=== PATIENT | female | born 1930 | race Caucasian/White ===

== ENCOUNTER → 2016-09-09 | Outpatient (CLI) | payer MEDICARE, OTHER ==
--- NOTE | 2016-09-09 14:14 | CR ---
EXAMINATION: Right hip HISTORY: Pain COMPARISON: 07/04/2016 TECHNIQUE: 2 views FINDINGS: 3 pins are again noted fixating a stable subcapital femoral neck fracture. Position and al ignment are grossly unchanged. Osseous structures otherwise appear mildly osteopenic. Mild osteophyt e formation is noted. IMPRESSION: Stable hardware fixation of a subcapital femoral neck fracture.
== END ==
LOC: MW.CHORTHO 07:57
PROVIDERS: ATTEND Orthopaedic Surgery
DX: M25.551 Pain in right hip (principal); S72.001D Fracture of unspecified part of neck of right femur, subsequent encounter for closed fracture with routine healing; Z98.890 Other specified postprocedural states; Z96.7 Presence of other bone and tendon implants; Z87.81 Personal history of (healed) traumatic fracture
CPT/HCPCS: 73502-26-RT; 73502-RT; G0463

== ENCOUNTER 2016-10-21 18:35 | Emergency (ER) | payer MEDICARE, OTHER ==
[2016-10-21] MEDS ORDERED: Sodium Chloride 0.9% 2.5 ML Syringe FLUSH PRN (18:41)
[2016-10-21] MEDS ORDERED: Sodium Chloride 0.9% 10 ML Syringe FLUSH PRN (18:41)
[2016-10-21] MEDS ORDERED: Phytonadione 10 MG in Sodium Chloride 0.9% 50 ML IV ONE (18:55)
[2016-10-21 19:11] LABS: CHLORIDE,CL 108 mmol/L (98-110); SODIUM,NA 140 mmol/L (136-146)
--- NOTE | 2016-10-21 19:23 | EDM.PDOC ---
ED HPI SEIZURE COMPLAINT - General Chief Complaint: Neuro Symptoms/Deficits Stated Complaint: STROKE Time Seen by Provider: 10/21/16 18:35 Source of Information: Reports: EMS, alf records, Other (C attendant) History Limitations: Reports: Altered mental status - History of Present Illness INITIAL COMMENTS - FREE TEXT/NARRATIVE: Presents via EMS from [facility]. The attendant states that this morning the patient had an unobserved fall. She appeared to have no injuries. Up until about 1750 this day she was alert, orientated and walking around as usual. She then became confused and then quickly progressed to unconsciousness with seizure-like activity with foaming in the mouth. - Related Data Allergies/ADRs: Allergies Allergy/AdvReac Type Severity Reaction Status Date / Time lidocaine Allergy Other Verified 10/21/16 18:51 Home Meds: Home Meds Acetaminophen [Tylenol] 650 mg PO Q6H PRN 10/21/16 [History] Bumetanide [Bumex] 2 mg PO DAILY 10/21/16 [History] Carvedilol [Coreg] 12.5 mg PO BID 10/21/16 [History] Dextran 70/Hypromellose [Artificial Tears] 1 drop EYEBOTH QID PRN 10/21/16 [ History] Digoxin 125 mcg PO DAILY 10/21/16 [History] LORazepam 0.5 mg PO BID PRN 10/21/16 [History] Lisinopril 2.5 mg PO DAILY 10/21/16 [History] Multivitamin [Multivitamins] 1 tab PO DAILY 10/21/16 [History] Potassium Chloride [Klor-Con] 20 meq PO BID 10/21/16 [History] Tamsulosin [Flomax] 0.4 mg PO DAILY 10/21/16 [History] Warfarin [Coumadin] 2.5 mg PO DAILY 10/21/16 [History] Past Medical History HEENT History: Reports: Hard of hearing Cardiovascular History: Reports: Afib, Hypertension, Pacemaker, Other (see below ) Other Cardiovascular History: edema Genitourinary History: Reports: Urinary incontinence [employer] PERFORMER History: Reports: Musculoskeletal History: Reports: Other (see below) Other Musculoskeletal History: "disorder of bone and cartilage unspecified" Psychiatric History: Reports: Anxiety, Depression Endocrine/Metabolic History: Reports: Other (see below). Denies: Diabetes, type I, Diabetes, type II Other Endocrine/Metabolic History: hypokalemia Hematologic History: Reports: None Oncologic (Cancer) History: Reports: Breast - Infectious Disease History Infectious Disease History: Reports: None - Past Surgical History HEENT Surgical History: Reports: None Cardiovascular Surgical History: Reports: None Female Surgical History: Reports: Mastectomy Endocrine Surgical History: Reports: None Musculoskeletal Surgical History: Reports: ORIF (left hip) Oncologic Surgical History: Reports: Mastectomy Other Oncologic Surgeries/Procedures: right mastectomy Social & Family History - Family History Family Medical History: Noncontributory Cardiac: Reports: Hypertension Oncologic: Reports: Colon - Tobacco Use Smoking Status *Q: Never Smoker Second Hand Smoke Exposure: No - Caffeine Use Caffeine Use: Reports: Coffee - Alcohol Use Days Per Week of Alcohol Use: 0 - Recreational Drug Use Recreational Drug Use: No ED ROS GENERAL - Review of Systems Review Of Systems: Unable To Obtain - Physical Exam Exam: See Below Exam Limited By: Altered mental status General Appearance: other (unconscious) Eye Exam: right eye: abnormal pupil (fixed and dilated) Ears: normal external exam Nose: normal inspection Throat/Mouth: Normal inspection, Other (no gag, foaming) Head Exam: atraumatic, normocephalic Neck: normal inspection Respiratory/Chest: lungs clear, other (bimal briceño) Cardiovascular: normal peripheral pulses, regular rate, rhythm, other ( bilateral edema) GI/Abdominal: soft Neuro Exam (Abbreviated): other (unconscious) Back Exam: normal inspection Extremities: normal inspection, other (flaccid) Skin Exam: Warm, Dry, Intact, Normal color, No rash Course - Orders/Labs/Meds Orders: Active Orders 24 hr Category Date Time Status Assess Neurological Status [RC] ASDIRECTED Care 10/21/16 18:41 Ordered Bedrest [RC] ASDIRECTED Care 10/21/16 18:41 Ordered Blood Glucose Check, Bedside [RC] STAT Care 10/21/16 18:41 Ordered Cardiac Monitoring [RC] . DIRECTED Care 10/21/16 18:41 Ordered EKG Documentation Completion [RC] STAT Care 10/21/16 18:41 Ordered Height and Weight [RC] UPON Care 10/21/16 18:41 Inactive Initiate Acute Stroke Protocol [RC] STAT Care 10/21/16 18:41 Ordered NIH Stroke Scale [RC] ASDIRECTED Care 10/21/16 18:41 Ordered Oxygen Therapy [RC] ASDIRECTED Care 10/21/16 18:41 Ordered Vital Signs [RC] Q15M Care 10/21/16 18:41 Ordered Head wo Cont [CT] Stat Exams 10/21/16 18:41 Ordered COMPREHENSIVE METABOLIC PN,CMP [CHEM] Stat Lab 10/21/16 18:41 Ordered INR,PT,PROTHROMBIN TIME [COAG] Stat Lab 10/21/16 18:41 Ordered PTT,PARTIAL THROMBOPLSTIN TIME [COAG] Stat Lab 10/21/16 18:41 Ordered TROPONIN I [CHEM] Stat Lab 10/21/16 18:41 Ordered TYPE AND SCREEN [BBK] Stat Lab 10/21/16 18:49 Ordered Sodium Chloride 0.9% [Saline Flush] Med 10/21/16 18:41 Ordered 10 ml FLUSH ASDIRECTED PRN Sodium Chloride 0.9% [Saline Flush] Med 10/21/16 18:41 Ordered 2.5 ml FLUSH ASDIRECTED PRN Peripheral IV Insertion Adult [OM.PC] Stat Oth 10/21/16 18:41 Ordered Peripheral IV Insertion Adult [OM.PC] Stat Oth 10/21/16 18:41 Ordered Resuscitation Status Stat Resus Stat 10/21/16 18:41 Ordered Medication Orders Sodium Chloride (Saline Flush) 10 ml FLUSH ASDIRECTED PRN PRN Reason: Keep Vein Open Sodium Chloride (Saline Flush) 2.5 ml FLUSH ASDIRECTED PRN PRN Reason: Keep Vein Open Labs: Laboratory Tests 10/21/16 Range/Units 18:44 WBC 12.90 H (4.0-11.0) K/uL RBC 4.40 (4.30-5.90) M/uL Hgb 14.2 (12.0-16.0) g/dL Hct 42.5 (36.0-46.0) % MCV 96.6 (80.0-98.0) fL MCH 32.3 H (27.0-32.0) pg MCHC 33.4 (31.0-37.0) g/dL RDW Std Deviation 52.8 (28.0-62.0) fl RDW Coeff of Jazlyn 15 (11.0-15.0) % Plt Count 198 (150-400) K/uL MPV 9.30 (7.40-12.00) fL Neut % (Auto) 81.5 H (48.0-80.0) % Lymph % (Auto) 7.9 L (16.0-40.0) % Alcorn % (Auto) 9.4 (0.0-15.0) % Eos % (Auto) 1.0 (0.0-7.0) % Baso % (Auto) 0.2 (0.0-1.5) % Neut # (Auto) 10.5 H (1.4-5.7) K/uL Lymph # (Auto) 1.0 (0.6-2.4) K/uL Alcorn # (Auto) 1.2 H (0.0-0.8) K/uL Eos # (Auto) 0.1 (0.0-0.7) K/uL Baso # (Auto) 0.0 (0.0-0.1) K/uL Nucleated RBC % 0.0 /100WBC Nucleated RBCs # 0 K/uL Meds: Medications Generic Name Dose Route Start Last Admin Trade Name Freq PRN Reason Stop Dose Admin Sodium Chloride 10 ml 10/21/16 18:41 Saline Flush FLUSH ASDIRECTED PRN Keep Vein Open Sodium Chloride 2.5 ml 10/21/16 18:41 Saline Flush FLUSH ASDIRECTED PRN Keep Vein Open - Re-Assessments/Exams Free Text/Narrative Re-Assessment/Exam: 10/21/16 19:15 Visited with Nephew Bridger Diamond regarding CT results, clinical findings, prognosis. He will contact the patient's sons. Pastoral care here. Departure - Departure Time of Disposition: 20:26 Disposition: DC/Tfer to [facility] Condition: poor Clinical Impression: Intracranial bleed Forms: ED Department Discharge - My Orders Last 24 Hours: My Active Orders 10/21/16 18:41 Assess Neurological Status [RC] ASDIRECTED Bedrest [RC] ASDIRECTED Blood Glucose Check, Bedside [RC] STAT Cardiac Monitoring [RC] . DIRECTED EKG Documentation Completion [RC] STAT Height and Weight [RC] UPON Initiate Acute Stroke Protocol [RC] STAT NIH Stroke Scale [RC] ASDIRECTED Oxygen Therapy [RC] ASDIRECTED Vital Signs [RC] Q15M Head wo Cont [CT] Stat COMPREHENSIVE METABOLIC PN,CMP [CHEM] Stat INR,PT,PROTHROMBIN TIME [COAG] Stat PTT,PARTIAL THROMBOPLSTIN TIME [COAG] Stat TROPONIN I [CHEM] Stat Sodium Chloride 0.9% [Saline Flush] 10 ml FLUSH ASDIRECTED PRN Sodium Chloride 0.9% [Saline Flush] 2.5 ml FLUSH ASDIRECTED PRN Peripheral IV Insertion Adult [OM.PC] Stat Peripheral IV Insertion Adult [OM.PC] Stat Resuscitation Status Stat 10/21/16 18:49 TYPE AND SCREEN [BBK] Stat - Assessment/Plan Last 24 Hours: My Active Orders 10/21/16 18:41 Assess Neurological Status [RC] ASDIRECTED Bedrest [RC] ASDIRECTED Blood Glucose Check, Bedside [RC] STAT Cardiac Monitoring [RC] . DIRECTED EKG Documentation Completion [RC] STAT Height and Weight [RC] UPON Initiate Acute Stroke Protocol [RC] STAT NIH Stroke Scale [RC] ASDIRECTED Oxygen Therapy [RC] ASDIRECTED Vital Signs [RC] Q15M Head wo Cont [CT] Stat COMPREHENSIVE METABOLIC PN,CMP [CHEM] Stat INR,PT,PROTHROMBIN TIME [COAG] Stat PTT,PARTIAL THROMBOPLSTIN TIME [COAG] Stat TROPONIN I [CHEM] Stat Sodium Chloride 0.9% [Saline Flush] 10 ml FLUSH ASDIRECTED PRN Sodium Chloride 0.9% [Saline Flush] 2.5 ml FLUSH ASDIRECTED PRN Peripheral IV Insertion Adult [OM.PC] Stat Peripheral IV Insertion Adult [OM.PC] Stat Resuscitation Status Stat 10/21/16 18:49 TYPE AND SCREEN [BBK] Stat
--- NOTE | 2016-10-21 20:06 | PCM.SN ---
- Free Text/Narrative Note: I spoke with CHLOE Quezada regarding this case. I also examined the patient. Her right pupil is fixed and dilated. She is unresponsive to nail pressure. She has no upper airway compromise. I discussed the CT findings with the patient's nephew at the bedside. I also spoke with daughter by phone. Her daughter lives in [place] and will be coming up. I advise regarding the intracranial bleeding. Her daughter advised me to 15 years ago she was diagnosed with a cerebral aneurysm. It was elected not to have any intervention at that time. The cerebral aneurysm was, reportedly, in the right parietal area. I discussed with family members regarding the patient's poor prognosis it was decided to send her back to the correction with comfort measures realizing that is likely eminent. I have asked nursing staff to contact her attending physician Dr. Fleming so I can give him a report.
[2016-10-21 20:38] VITALS: BP 186/106
--- NOTE | 2016-10-22 15:38 | CT ---
EXAM DATE: 10/21/16 PATIENT'S AGE: 86 Patient: ROSMERY MOSS Facility: [place], [place] Site . Site : [id number] Study: CT Head STROKE PROTOCOL stroke-10/21/2016 7:02:24 PM Ordering Physician: FLAKITA Final Report: INDICATION: STROKE CODE FELL EARLIER TODAY ON COUMADIN CT HEAD WITHOUT CONTRAST TECHNIQUE: Multiple axial CT images were performed through the head without intravenous contrast administration. COMPARISON: 05/13/[address] FINDINGS: There is a large acute intraparenchymal hematoma in the right cerebral hemisphere centered within the right temporal lobe, measuring 8.3 x 3.5 x 4.3 centimeters. This hematoma produces mass effect including compression of the right lateral ventricle, effacement of sulci over the right hemisphere convexity, and [id number] midline shift of approximately 9 millimeters. In addition, there is extensive subarachnoid hemorrhage within the sulci over the right hemisphere convexity, filling the basal cisterns, along the right tentorium, and anterior to the lower brainstem. There is a metallic density likely representing an aneurysm coil, in the region of the anterior communicating artery, unchanged from before. There is mild diffuse age-related brain atrophy. Kennedy-white differentiation is within normal limits. There is patchy hypodensity in the periventricular white matter, a nonspecific finding which most likely reflects chronic small vessel ischemic change. Osseous structures are within normal limits and no fractures are seen. Included portions of the paranasal sinuses show mucosal thickening in the right frontal, right ethmoid, bilateral maxillary, and left sphenoid sinuses consistent with sinusitis. The mastoid air cells are normally aerated. IMPRESSION: 1. Large acute intraparenchymal hematoma in the right temporal lobe with mass effect and midline shift as detailed above. 2. Extensive subarachnoid hemorrhage, as described above. 3. Age-related brain atrophy and white matter hypodensity consistent with chronic small vessel ischemic change. 4. Sinusitis. Results were called to Dr. Navarrete at 7:15 p.m. on 10/21/2016. DOTTIE FISHER MD [employer] Dictated by Amado Fisher MD @ 10/21/2016 7:23:10 PM Dictated by: Amado Fisher MD @ 10/21/2016 19:23:29 (Electronic Signature) Report Signed by Proxy and Original Signed Document filed in the Medical Record. SHANE
== END 2016-10-21 20:35 ==
LOC: MW.ED 18:35
DX: I62.9 Nontraumatic intracranial hemorrhage, unspecified (principal); I48.91 Unspecified atrial fibrillation; I10 Essential (primary) hypertension; F41.9 Anxiety disorder, unspecified; F32.9 Major depressive disorder, single episode, unspecified; E11.9 Type 2 diabetes mellitus without complications; Z85.3 Personal history of malignant neoplasm of breast; Z90.11 Acquired absence of right breast and nipple; Z98.890 Other specified postprocedural states; Z79.01 Long term (current) use of anticoagulants; Z79.899 Other long term (current) drug therapy; Z88.8 Allergy status to other drugs, medicaments and biological substances
CPT/HCPCS: 36415; 70450; 80053; 82962; 84484; 85025; 85610; 85730; 96365; 99285; J3430; J7050